=== PATIENT | male | born 1930 | race Caucasian/White ===

== ENCOUNTER 2016-12-05 13:08 | Outpatient (CLI) | payer MEDICARE, OTHER | END 2016-12-05 13:09 | disposition home or self-care (01) | LOC: SC 13:08 | PROVIDERS: ATTEND Internal Medicine Pulmonary Disease | DX: G47.33 Obstructive sleep apnea (adult) (pediatric) (principal) | CPT/HCPCS: 99203; G0463; 99212 ==

== ENCOUNTER 2017-01-12 22:00 | Outpatient (CLI) | payer MEDICARE, OTHER | END 2017-01-12 22:01 | disposition home or self-care (01) | LOC: SC 22:00 | PROVIDERS: ATTEND Internal Medicine Pulmonary Disease | DX: G47.61 Periodic limb movement disorder (principal) | CPT/HCPCS: 95810 ==

== ENCOUNTER 2017-02-07 09:29 | Outpatient (CLI) | payer MEDICARE, OTHER | END 2017-02-07 09:30 | disposition home or self-care (01) | LOC: SC 09:29 | PROVIDERS: ATTEND Nurse Practitioner Family | DX: G47.61 Periodic limb movement disorder (principal); G47.10 Hypersomnia, unspecified; I49.9 Cardiac arrhythmia, unspecified; R06.83 Snoring | CPT/HCPCS: 99214; G0463; 99212 ==

== ENCOUNTER 2017-04-12 13:38 | Outpatient (CLI) | payer MEDICARE, OTHER ==
[2017-04-12 14:07] LABS: BILIRUBIN,DIRECT 0.1 mg/dL (0.1-0.5); BILIRUBIN,TOTAL 0.4 mg/dL (0.2-1.0); TOTAL PROTEIN 7.1 g/dL (6.7-8.2)
== END 2017-04-12 13:39 | disposition home or self-care (01) ==
LOC: LAB 13:38
PROVIDERS: ATTEND Orthopaedic Surgery
DX: M17.11 Unilateral primary osteoarthritis, right knee (principal); M17.12 Unilateral primary osteoarthritis, left knee; Z96.651 Presence of right artificial knee joint
CPT/HCPCS: 36415; 80076

== ENCOUNTER 2017-10-18 09:03 | Outpatient (CLI) | payer MEDICARE, OTHER ==
[2017-10-18 12:00] LABS: CHOL/HDL RATIO 3.1 (<5.0); CHOLESTEROL 203 mg/dL; HDL CHOLESTEROL 66 mg/dL; LDL CHOLESTEROL,CALCULATED 124 mg/dL; LDL/HDL RATIO 1.9 (<3.6); VLDL CHOLESTEROL 13 mg/dL
== END 2017-10-18 09:04 | disposition home or self-care (01) ==
LOC: LAB.F 09:03
PROVIDERS: ATTEND Internal Medicine
DX: E78.5 Hyperlipidemia, unspecified (principal)
CPT/HCPCS: 36415; 80061; 83721

== ENCOUNTER 2018-04-04 08:19 | Emergency (ER) | payer MEDICARE, OTHER ==
--- NOTE | 2018-04-04 08:47 | ED Physician Documentation ---
PD HPI FOCAL NEURO - Stated complaint Stated Complaint: R ARM NUMBNESS/DIZZINESS - Chief complaint Chief Complaint: Neuro - History obtained from History obtained from: Patient, Family - History of Present Illness Timing - onset: Enter time (0800), Today Timing - duration: Minutes Timing - details: Abrupt onset, Now resolved Severity of deficit: Mild Weakness: Hand, Right Numbness: Hand, Right Associated symptoms: No: Headache, Nausea / vomiting, Seizure, Syncope, Fall, Head injury, Chest pain, Neck pain, Back pain, Fever Contributing factors: positive: Other (has and is dehydrated.) Baseline status: positive: A&OX3, ambulatory, indep Similar symptoms before: No diagnosis Recently seen: Not recently seen - Additional information Additional information: Previously well 88-year-old male with a history of coronary artery disease status post stent placement 15 years ago was doing his usual morning routine this morning when he noted some numbness to his right hand and some clumsiness as well as some slurring of his speech. He felt a bit lightheaded dizzy and his noted him to be a bit pale. His symptoms resolved when he sat down and he recalls that he has had similar symptoms about 1 week ago that were brief and associated only with some slurring of his speech which he felt like he had a thick tongue. He does have a murmur that he has known about all of his life he has had an echocardiogram done at the time he had the stents placed but he does not believe he has had an echo or a follow-up with a health safety and environment manager for the past 10-years. He is currently symptom-free and he denies any other current illness. He does state that he had a URI about 1 month ago symptoms of that resolved completely. Review of Systems Constitutional: denies: Fever, Chills Eyes: denies: Decreased vision Ears: denies: Ear pain Nose: denies: Rhinorrhea / runny nose, Congestion Throat: denies: Sore throat Cardiac: denies: Chest pain / pressure, Palpitations Respiratory: denies: Dyspnea, Cough GI: denies: Abdominal Pain, Nausea, Vomiting : denies: Dysuria, Frequency Skin: denies: Rash, Lesions Musculoskeletal: denies: Neck pain, Back pain, Extremity pain Neurologic: reports: Focal weakness, Numbness, Difficulty speaking. denies: Generalized weakness, Seizure, Confused, Altered mental status, Headache, Head injury, LOC PD PAST MEDICAL HISTORY - Present Medications Home Medications: Ambulatory Orders Medication Instructions Recorded Confirmed Aspirin 81 mg PO DAILY 04/04/18 04/04/18 Docusate Sodium 100 mg PO DAILY 04/04/18 04/04/18 Glucosamine Sulfate Dipot Chlr 2,000 mg ORAL DAILY 04/04/18 04/04/18 [Glucosamine Sulfate] B[place]-3S/Dha/Epa/Fish Oil/D3 2 each PO DAILY 04/04/18 04/04/18 [Bells-3 + D Softgel] Tamsulosin [Flomax] 0.4 mg ORAL DAILY 04/04/18 04/04/18 - Allergies Allergies/Adverse Reactions: Allergies Allergy/AdvReac Type Severity Reaction Status Date / Time No Known Drug Allergies Allergy Verified 04/04/18 08:38 PD ED PE NORMAL - Vitals Vital signs reviewed: Yes (hypertensive marked systolic) - General General: Alert and oriented X 3, No acute distress, Well developed/nourished - HEENT HEENT: Atraumatic, PERRL, EOMI - Neck Neck: Supple, no meningeal sign, No bony TTP - Cardiac Cardiac: RRR, Other (2/6 holosystolic murmer at LSB is high pitched consistent with aortic stenosis) - Respiratory Respiratory: No respiratory distress, Clear bilaterally - Abdomen Abdomen: Soft, Non tender - Back Back: No CVA TTP, No spinal TTP - Derm Derm: Normal color, Warm and dry, No rash - Extremities Extremities: No deformity, No edema - Neuro Neuro: Alert and oriented X 3, yard crane operator 2-12 intact, No motor deficit, No sensory deficit, Normal speech Eye Opening: Spontaneous Motor: Obeys Commands Verbal: Oriented GCS Score: 15 - Psych Psych: Normal mood, Normal affect NIHSS - Level of Consciousness Level of consciousness: (0) Alert, Keenly responsive LOC Questions: (0) Answers both Q's correct LOC Commands: (0) Performs both correctly - Gaze Best Gaze: (0) Normal - Visual Visual: (0) No loss - Facial Palsy Facial Palsy: (0) Normal, symmetrical movement - Motor Arms (both separate) Motor Arm (right): (0) No drift Motor Arm (left): (0) No drift - Motor Legs (both separate) Motor Leg (right): (0) No drift Motor Leg (left): (0) No drift - Limb Ataxia Limb Ataxia: (0) Absent - Sensory Sensory: (0) Normal - Best Language Best Language: (0) No aphasia - Dysarthria Dysarthria: (0) Normal - Extinction and Inattention (formally neg Extinction and inattention: (0) No abnormality - Total Score/Results Total Score/Result: 0 Results - Vitals Vitals: Vital Signs - 24 hr 04/04/18 04/04/18 04/04/18 08:24 08:30 09:30 Temperature 36.2 C L Heart Rate 62 56 L 54 L Respiratory 19 17 16 Rate Blood Pressure 198/81 H 198/81 H 158/67 H O2 Saturation 100 96 100 04/04/18 04/04/18 10:00 10:33 Temperature Heart Rate 58 L 63 Respiratory 20 16 Rate Blood Pressure 152/76 H 173/83 H O2 Saturation 98 95 Oxygen O2 Source Room air - EKG (time done) 0823 Rate: Rate (enter#) (57) Rhythm: NSR, LAE Ischemia: Normal ST segments Compare to prior EKG: Old EKG unavailable Computer interpretation: Agree with computer - Labs Labs: Laboratory Tests 04/04/18 04/04/18 04/04/18 08:42 08:42 08:42 WBC 3.9 L RBC 4.10 L Hgb 12.4 L Hct 36.4 L MCV 88.8 MCH 30.1 MCHC 34.0 RDW 13.9 Plt Count 183 MPV 8.3 Neut # (Auto) 2.3 Lymph # (Auto) 1.0 L Mckenzie # (Auto) 0.3 Eos # (Auto) 0.2 Baso # (Auto) 0.0 Absolute Nucleated RBC 0.00 Nucleated RBC % 0.0 Sodium 137 Potassium 3.7 Chloride 102 Carbon Dioxide 26 Anion Gap 9.0 BUN 18 Creatinine 0.7 Estimated GFR (MDRD) 107 Glucose 100 Calcium 9.1 Total Bilirubin 0.7 AST 19 ALT 16 Alkaline Phosphatase 70 Troponin I < 0.04 Total Protein 6.8 Albumin 4.0 Globulin 2.8 Albumin/Globulin Ratio 1.4 Lipase 39 Urine Color Urine Clarity Urine pH Ur Specific [place] Urine Protein Urine Glucose (UA) Urine Ketones Urine Occult Blood Urine Nitrite Urine Bilirubin Urine Urobilinogen Ur Leukocyte Esterase Ur Microscopic Review Urine Culture Comments 04/04/18 10:26 WBC RBC Hgb Hct MCV MCH MCHC RDW Plt Count MPV Neut # (Auto) Lymph # (Auto) Mckenzie # (Auto) Eos # (Auto) Baso # (Auto) Absolute Nucleated RBC Nucleated RBC % Sodium Potassium Chloride Carbon Dioxide Anion Gap BUN Creatinine Estimated GFR (MDRD) Glucose Calcium Total Bilirubin AST ALT Alkaline Phosphatase Troponin I Total Protein Albumin Globulin Albumin/Globulin Ratio Lipase Urine Color YELLOW Urine Clarity CLEAR Urine pH 6.0 Ur Specific [place] 1.020 Urine Protein NEGATIVE Urine Glucose (UA) NEGATIVE Urine Ketones NEGATIVE Urine Occult Blood NEGATIVE Urine Nitrite NEGATIVE Urine Bilirubin NEGATIVE Urine Urobilinogen 0.2 (NORMAL) Ur Leukocyte Esterase NEGATIVE Ur Microscopic Review NOT INDICATED Urine Culture Comments NOT INDICATED - Rads (name of study) CT head without Radiology: Prelim report reviewed (Impression: 1. No acute intracranial abnormality. 2. There is low density intra-axial structure in the right anterior temporal lobe, incompletely characterized on this exam. A follow-up brain MRI on a nonemergent basis with and without IV contrast would be useful for further characterization.), EMP read indepedently, See rad report Procedures - IVC sono (time) 0840 Bedside IVC sono: IVC measures (cm) (0.82), IVC collapsed c insp (cm) (complete), Dehydration (est 2 liter deficit) PD MEDICAL DECISION MAKING - ED course Complexity details: reviewed old records, reviewed results, re-evaluated patient, considered differential, d/w patient, d/w family ED course: 88-year-old male with a history of coronary artery disease who is status post stent placement a number of years ago has not had follow-up with cardiology and has a murmur consistent with aortic stenosis. Today he is found to be dehydrated and developed symptoms of a TIA. He has had similar symptoms 1 week ago which resolved as well. I suspect he is been dehydrated chronically and today we have provided IV hydration he feels some improvement and his symptoms of TIA resolved prior to coming to the emergency department. I did discuss admission to the hospital with the patient and he would prefer to go home. Today the engineering lab technician is not available in the hospital as they are out on sick call. I have asked the patient to follow-up with his primary this week regarding scheduling of the remainder of test required for evaluation of TIA. Departure - Departure Disposition: 01 Home, Self Care Clinical Impression: TIA (transient ischemic attack), Dehydration Aortic stenosis Qualifiers: Cardiac valve disease etiology: etiology unspecified Qualified Code(s): I35.0 - Nonrheumatic aortic (valve) stenosis Condition: Stable Instructions: ED Dehydration, ED Transient Ischemic Attack Follow-Up: Jamison Hernandez MD [Primary Care Provider] - Comments: Today it appears you had a TIA and this is likely related to the combination of dehydration and aortic stenosis. We have hydrated with intravenous fluids and a workup will need to be completed expeditiously. Contact your primary care doctor about scheduling the required tests. This should include an echocardiogram of your heart. In the meantime stay hydrated
[2018-04-04] MEDS ORDERED: SODIUM CHLORIDE 0.9% 1,000 ML IV ONE (08:53)
[2018-04-04 09:00] LABS: BASOPHILS % (AUTO) 0.6 %; EOSINOPHILS # (AUTO) 0.2 10^3/uL (0.0-0.7); EOSINOPHILS % (AUTO) 4.9 %; HGB - HEMOGLOBIN 12.4 g/dL (14.0-18.0); LYMPHOCYTES % (AUTO) 26.1 %; MEAN CORPUSCULAR HEMOGLOBIN 30.1 pg (27.0-31.0); MEAN CORPUSCULAR VOLUME 88.8 fL (80.0-94.0); MEAN PLATELET VOLUME 8.3 fL (7.4-11.4); MONOCYTES # (AUTO) 0.3 10^3/uL (0.0-1.0); MONOCYTES % (AUTO) 8.7 %; NEUTROPHILS # (AUTO) 2.3 10^3/uL (1.5-6.6); NEUTROPHILS % (AUTO) 59.7 %; PLT - PLATELET COUNT 183 10^3/uL (130-450); RED CELL DISTRIBUTION WIDTH 13.9 % (12.0-15.0); WHITE BLOOD COUNT 3.9 x10^3/uL (4.8-10.8)
[2018-04-04 09:15] LABS: ALBUMIN/GLOBULIN RATIO 1.4 (1.0-2.2); BILIRUBIN,TOTAL 0.7 mg/dL (0.2-1.0); CALCIUM 9.1 mg/dL (8.5-10.3); CREATININE 0.7 mg/dL (0.6-1.2); TOTAL PROTEIN 6.8 g/dL (6.7-8.2)
--- NOTE | 2018-04-04 09:25 | CT Report ---
Reason: right sided weakness transient Procedure Date: 04/04/2018 Accession Number: [id number] / [id number] Procedure: CT - Head W/O CPT Code: FULL RESULT: EXAM: CT HEAD EXAM DATE: 04/04/2018 09:11 AM. CLINICAL HISTORY: Right sided weakness transient. COMPARISON: None available. TECHNIQUE: Multiaxial CT images were obtained from the foramen magnum to the vertex. Reformats: Sagittal and coronal. IV contrast: None. In accordance with CT protocol optimization, one or more of the following dose reduction techniques were utilized for this exam: automated exposure control, adjustment of mA and/or KV based on patient size, or use of iterative reconstructive technique. FINDINGS: Parenchyma: No mass-effect or midline shift. No intracranial hemorrhage. There is a CSF density intra-axial lesion in the anterior right temporal lobe on series 3 image 7 measuring 1.5 x 1.3 cm. There is a 0.4 x 0.8 cm low-density lesion in the right occipital lobe on series 3 image 12, probably a focally dilated sulcus. The waldron-white differentiation appears preserved. Extraaxial Spaces: Normal for age. No subdural or epidural collections identified. Ventricles: Normal in size and position. Sinuses and Orbits: Imaged paranasal sinuses, orbits, and mastoids show no significant abnormality. Bones: No evidence of fracture or calvarial defect. Other: None. IMPRESSION: 1. No acute intracranial abnormality. 2. There is a low-density intra-axial structure in the anterior right temporal lobe, incompletely characterized on this exam. A follow-up brain MRI on a nonemergent basis with and without IV contrast would be useful for further characterization. [facility]
[2018-04-04 10:45] LABS: BILIRUBIN,URINE NEGATIVE (NEGATIVE); GLUCOSE, URINE (UA) NEGATIVE (NEGATIVE); KETONES,URINE (UA) NEGATIVE (NEGATIVE); LEUKOCYTE ESTERASE, URINE NEGATIVE (NEGATIVE); NITRITE,URINE NEGATIVE (NEGATIVE); OCCULT BLOOD,URINE NEGATIVE (NEGATIVE); PROTEIN,URINE NEGATIVE (NEGATIVE); UROBILINOGEN,URINE 0.2 (NORMAL) E.U./dL (NORMAL)
[2018-04-04 10:48] LABS: CLARITY,URINE CLEAR (CLEAR)
[2018-04-04 12:30] VITALS: BP 131/67
== END 2018-04-04 12:30 | disposition home or self-care (01) ==
LOC: ED 08:19
DX: G45.9 Transient cerebral ischemic attack, unspecified (principal); E86.0 Dehydration; I35.0 Nonrheumatic aortic (valve) stenosis; I25.10 Atherosclerotic heart disease of native coronary artery without angina pectoris; Z95.5 Presence of coronary angioplasty implant and graft
CPT/HCPCS: 36415; 70450; 80053; 81001; 81003; 83690; 84484; 85025; 87086; 93005; 96360; 99284

== ENCOUNTER 2018-04-07 08:15 | Emergency (ER) | payer MEDICARE, OTHER ==
--- NOTE | 2018-04-07 08:20 | ED Physician Documentation ---
PD HPI FOCAL NEURO - Stated complaint Stated Complaint: DIZZY/R SIDE NUMBNESS/SLURRED SPEECH - History obtained from History obtained from: Patient - History of Present Illness Timing - onset: How many hours ago (1), Today Timing - duration: Minutes (it is improving enroute and is mostly gone here in ER.) Timing - details: Abrupt onset, Now resolved Severity of deficit: Moderate Weakness: Hand, Right (mild). No: Face Numbness: Arm, Hand, Right. No: Face, Leg Associated symptoms: No: Headache, Nausea / vomiting, Chest pain Contributing factors: negative: Anticoagulated Baseline status: positive: A&OX3, ambulatory, indep Similar symptoms before: Diagnosis (presume TIA, 3 days ago and a week ago, both similar symptoms and lasted about 5-10 minutes.) Recently seen: Emergency Dept (3 days ago for same symptoms, with CT head and some blood tests. Given IV fluids. Was continued on ASA daily.) Review of Systems Constitutional: denies: Fever, Chills Nose: denies: Rhinorrhea / runny nose, Congestion Throat: denies: Sore throat Cardiac: denies: Chest pain / pressure, Palpitations Respiratory: denies: Dyspnea, Cough GI: denies: Abdominal Pain, Nausea, Vomiting Skin: denies: Rash, Lesions Neurologic: reports: Focal weakness, Numbness. denies: Generalized weakness, Near syncope, Confused, Altered mental status, Headache Immunocompromised: denies: Immunocompromised PD PAST MEDICAL HISTORY - Past Medical History Cardiovascular: Coronary artery disease, Murmur Neuro: TIA : Retention, Frequency - Past Surgical History Past Surgical History: Yes Ortho: Knee replacement Cardiovascular: Coronary stent - Present Medications Home Medications: Ambulatory Orders Medication Instructions Recorded Confirmed Aspirin 81 mg PO DAILY 04/04/18 04/04/18 Docusate Sodium 100 mg PO DAILY 04/04/18 04/04/18 Glucosamine Sulfate Dipot Chlr 2,000 mg ORAL DAILY 04/04/18 04/04/18 [Glucosamine Sulfate] [place]-3S/Dha/Epa/Fish Oil/D3 2 each PO DAILY 04/04/18 04/04/18 [[place]-3 + D Softgel] Tamsulosin [Flomax] 0.4 mg ORAL DAILY 04/04/18 04/04/18 - Allergies Allergies/Adverse Reactions: Allergies Allergy/AdvReac Type Severity Reaction Status Date / Time No Known Drug Allergies Allergy Verified 04/07/18 08:22 - Social History Does the pt smoke?: No Smoking Status: Never smoker Does the pt drink ETOH?: No Does the pt have substance abuse?: No - Immunizations Immunizations are current?: Yes PD ED PE NORMAL - Vitals Vital signs reviewed: Yes - General General: Alert and oriented X 3, No acute distress, Well developed/nourished - HEENT HEENT: Atraumatic, Pharynx benign - Neck Neck: Supple, no meningeal sign, No adenopathy, No bruit - Cardiac Cardiac: RRR, Other (2/6 murmur left chest radiates to back) - Respiratory Respiratory: Clear bilaterally - Abdomen Abdomen: Soft, Non tender - Back Back: No CVA TTP - Derm Derm: Normal color, Warm and dry - Extremities Extremities: No deformity, No tenderness to palpate - Neuro Neuro: Alert and oriented X 3, enterprise account executive 2-12 intact, No motor deficit, No sensory deficit, Normal speech Eye Opening: Spontaneous Motor: Obeys Commands Verbal: Oriented GCS Score: 15 - Psych Psych: Normal mood, Normal affect NIHSS - Level of Consciousness Level of consciousness: (0) Alert, Keenly responsive LOC Questions: (0) Answers both Q's correct LOC Commands: (0) Performs both correctly - Gaze Best Gaze: (0) Normal - Visual Visual: (0) No loss - Facial Palsy Facial Palsy: (0) Normal, symmetrical movement - Motor Arms (both separate) Motor Arm (right): (0) No drift Motor Arm (left): (0) No drift - Motor Legs (both separate) Motor Leg (right): (0) No drift Motor Leg (left): (0) No drift - Limb Ataxia Limb Ataxia: (0) Absent - Sensory Sensory: (0) Normal - Best Language Best Language: (0) No aphasia - Dysarthria Dysarthria: (0) Normal - Extinction and Inattention (formally neg Extinction and inattention: (0) No abnormality - Total Score/Results Total Score/Result: 0 Results - Vitals Vitals: Vital Signs - 24 hr 04/07/18 04/07/18 04/07/18 08:19 08:33 09:54 Temperature 36.1 C L Heart Rate 60 61 59 L Respiratory 18 16 17 Rate Blood Pressure 204/64 H 193/85 H 182/87 H O2 Saturation 97 97 97 04/07/18 11:22 Temperature Heart Rate 59 L Respiratory 18 Rate Blood Pressure 172/87 H O2 Saturation 99 Oxygen O2 Source Room air - Labs Labs: Laboratory Tests 04/07/18 04/07/18 04/07/18 08:46 08:46 08:46 WBC 3.7 L RBC 3.97 L Hgb 12.0 L Hct 35.3 L MCV 88.9 MCH 30.3 MCHC 34.1 RDW 14.1 Plt Count 176 MPV 7.9 Neut # (Auto) 2.2 Lymph # (Auto) 0.9 L [place] # (Auto) 0.3 Eos # (Auto) 0.2 Baso # (Auto) 0.0 Absolute Nucleated RBC 0.00 Nucleated RBC % 0.0 ESR 14 Sodium 138 Potassium 3.8 Chloride 105 Carbon Dioxide 27 Anion Gap 6.0 BUN 16 Creatinine 0.7 Estimated GFR (MDRD) 107 Glucose 109 H Calcium 8.9 Magnesium 2.1 Total Bilirubin 0.5 AST 17 ALT 15 Alkaline Phosphatase 71 Total Protein 6.7 Albumin 3.8 Globulin 2.9 Albumin/Globulin Ratio 1.3 Lipase 31 - Rads (name of study) head/neck CT-A Radiology: Prelim report reviewed, Discussed with rads (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 Of more clinical importance is a left M1 stenosis.) PD MEDICAL DECISION MAKING - ED course Complexity details: considered differential, d/w patient, d/w economics consultant (I talked with [place] neurology who said the M1 stenosis was too distal to be approachable by endovascular stents or such. His recommendation was to add a statin and also add Plavix to his daily aspirin. This should have a 3-4-week duration and then possibly longer after that. Otherwise observation and regular TIA evaluation.), other (We were to place the patient observation here at our facility because of his moderate risk on the ABCD score of 4 and also for furthe r evaluation with echo and MRI. However the hospitalist service was informed subsequently that our data collection technician was unavailable for a few days and there is a question of MRI availability and so we would not be able to undergo the appropriate workup. The patient asked about [facility] alternatively. I talked with the hospitalist there who was willing to accept the patient in transfer for the appropriate TIA evaluation. He remained stable without any symptoms here in the department. He was given the clopidogrel and initial dose of statin.) Departure - Departure Disposition: 02 Transfer Acute Care Hosp Clinical Impression: TIA (transient ischemic attack) Condition: Stable Record reviewed to determine appropriate education?: Yes
[2018-04-07] MEDS ORDERED: SODIUM CHLORIDE 0.9% 1,000 ML IV ONE (08:34)
[2018-04-07 08:54] LABS: BASOPHILS % (AUTO) 0.8 %; EOSINOPHILS # (AUTO) 0.2 10^3/uL (0.0-0.7); LYMPHOCYTES # (AUTO) 0.9 10^3/uL (1.5-3.5); LYMPHOCYTES % (AUTO) 24.9 %; MEAN CORPUSCULAR HEMOGLOBIN 30.3 pg (27.0-31.0); MEAN CORPUSCULAR HGB CONC 34.1 g/dL (32.0-36.0); MEAN CORPUSCULAR VOLUME 88.9 fL (80.0-94.0); MEAN PLATELET VOLUME 7.9 fL (7.4-11.4); MONOCYTES # (AUTO) 0.3 10^3/uL (0.0-1.0); MONOCYTES % (AUTO) 8.6 %; NEUTROPHILS # (AUTO) 2.2 10^3/uL (1.5-6.6); NEUTROPHILS % (AUTO) 59.7 %; PLT - PLATELET COUNT 176 10^3/uL (130-450); RED BLOOD COUNT 3.97 10^6/uL (4.70-6.10); RED CELL DISTRIBUTION WIDTH 14.1 % (12.0-15.0); WHITE BLOOD COUNT 3.7 x10^3/uL (4.8-10.8)
[2018-04-07] MEDS ORDERED: IOVERSOL 320 100 ML VIAL IVP ONE ×2 (08:59→09:58)
[2018-04-07 09:04] LABS: ALBUMIN 3.8 g/dL (3.2-5.5); ALBUMIN/GLOBULIN RATIO 1.3 (1.0-2.2); BILIRUBIN,TOTAL 0.5 mg/dL (0.2-1.0); CALCIUM 8.9 mg/dL (8.5-10.3); CREATININE 0.7 mg/dL (0.6-1.2); MAGNESIUM 2.1 mg/dL (1.7-2.8); TOTAL PROTEIN 6.7 g/dL (6.7-8.2)
--- NOTE | 2018-04-07 10:13 | CT Report ---
Reason: aphasia and right arm numb Procedure Date: 04/07/2018 Accession Number: [id number] / [id number] Procedure: CT - Head Angio CPT Code: FULL RESULT: The CT angiogram head is dictated in conjunction with the CT angiogram of the neck and the reader is referred to that dictation
--- NOTE | 2018-04-07 10:13 | CT Report ---
Reason: right arm numb and aphasia this morning Procedure Date: 04/07/2018 Accession Number: [id number] / [id number] Procedure: CT - Head W/O Stroke Protocol CPT Code: FULL RESULT: The CT head without contrast is dictated in conjunction with the patient's CT angiogram of the neck and the reader is referred to that dictation
--- NOTE | 2018-04-07 10:43 | CT Report ---
Reason: aphasia and right arm numb this morning Procedure Date: 04/07/2018 Accession Number: [id number] / [id number] Procedure: CT - Neck Angio CPT Code: FULL RESULT: EXAM: CT ANGIOGRAM HEAD AND NECK. CT SCAN HEAD WITHOUT AND WITH CONTRAST. EXAM DATE:04/07/2018 09:11 AM. CLINICAL HISTORY:Aphasia and right arm numbness this morning. COMPARISON:CT head 04/04/2018. TECHNIQUE: Routine axial helical CTA imaging was performed from the aortic arch through the [place] [employer] [place]. Routine axial CT imaging of the head was performed prior to and following contrast administration. Reconstructions: Routine multiplanar 3D MIP reconstructions. IV contrast: Optiray 320: 80 mL. NASCET Criteria are used for stenosis measurements. In accordance with CT protocol optimization, one or more of the following dose reduction techniques were utilized for this exam: automated exposure control, adjustment of mA and/or KV based on patient size, or use of iterative reconstructive technique. FINDINGS: CT SCAN HEAD: No territorial loss of biggs-white matter differentiation is present. Age-appropriate prominence of the ventricles and sulci is noted. There is no extra-axial fluid collection present. No intracranial hemorrhage is identified. In the right temporal lobe there is a 13 mm hypoattenuating well-circumscribed focus which does not enhance and has attenuation very similar to CSF. No enhancing mass is identified in the brain parenchyma. No suspicious lytic or blastic region is seen in the calvarium. Gas is seen in the cavernous sinus bilaterally and in the infratemporal fossa bilaterally. This might well be due to recent IV therapy. CT ANGIOGRAM EXTRACRANIAL CIRCULATION: Atherosclerotic calcification is seen involving the transverse thoracic aorta. No significant stenosis is present at the great vessel origins. Right Carotid: Atherosclerotic plaque is seen in the distal CCA and proximal cervical ICA. 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 There is no reconstitution of the cervical ICA distal to this point. Atherosclerotic plaque is seen in the region of the ECA origin without a significant stenosis present. Left Carotid: Mild atherosclerotic plaque is seen involving the distal CCA with extension into the proximal cervical ICA. This does not result in significant narrowing of the cervical ICA. Vertebrals: Artifact limits assessment of each proximal vertebral artery. No hemodynamically significant stenosis is identified in either cervical vertebral artery. CT ANGIOGRAM INTRACRANIAL CIRCULATION: There is reconstitution of the supraclinoid ICA on the right. There is an anterior communicating artery. The A1 segment of the right DENISE is slightly hypoplastic. A moderate stenosis is seen in the distal M1 segment of the left MCA. No narrowing is seen in the M1 segment of the right MCA. No significant narrowing or filling defect is seen in the basilar trunk. Mild narrowing is seen in the V4 segment of each vertebral artery. The anterior cerebral arteries are patent. A posterior communicating artery is seen on the right. Mild to moderate stenosis is seen involving the proximal P2 segment of the left CARD TAPE CONVERTER OPERATOR. The posterior cerebral arteries are patent. The anterior cerebral arteries are patent. 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 Expected enhancement is identified in the major intracranial vessels. The right transverse sinus is dominant. Other: The thyroid gland is not enlarged. No bulky lymphadenopathy is seen in the neck or in the visualized upper mediastinum. No mass is present in either submandibular gland or in either parotid gland. No mass is present in either orbit. Degenerative changes are seen in the visualized spine. This is greatest in the cervical spine at C6-C7 and C7-T1, where there is degenerative disk disease and osteophyte formation present. There is bilateral foraminal stenosis at C6-C7. IMPRESSION: CT SCAN HEAD: 1. No intracranial hemorrhage. 2. No enhancing mass. 3. Biggs-white matter differentiation is preserved. 4. 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 Imaging surveillance demonstrating stability over time would be of value. CT ANGIOGRAM NECK: 1. 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 No significant stenosis is seen involving the origin of the ECA on the right. 2. No significant narrowing is seen in the cervical ICA on the left or in either cervical vertebral artery. CT ANGIOGRAM HEAD: 1. There is a moderate stenosis in the distal M1 segment of the left MCA. 2. Mild to moderate stenosis is seen involving the left CARD TAPE CONVERTER OPERATOR. 3. Mild narrowing is seen in the V4 segment of each vertebral artery. 4. There is reconstitution of the distal ICA on the right at its supraclinoid segment. Other: 1. Degenerative changes are seen in the spine, greatest in the cervical spine at C6-C7 and C7-T1. Report phoned to the ordering physician at 10:15 AM. RADIA
[2018-04-07] MEDS ORDERED: CLOPIDOGREL 75 MG TABLET PO STA (10:48)
[2018-04-07] MEDS ORDERED: ATORVASTATIN 10 MG TABLET PO STA (11:11)
--- NOTE | 2018-04-07 11:54 | CONSULTATION NOTE ---
Referring Provider Name of Referring Provider:: Dr. Ramachandran Consult Date: 04/07/18 Chief Complaint - Chief Complaint Chief Complaint: sluggish speech, RUE numbness, ataxia. History of Present Illness - Admitted From Admitted From:: ED - History Obtained From Records Reviewed: yes History obtained from: chart review, patient, family Exam Limitations: none - History of Present Illness HPI Comment/Other: Roney Avalos is an 88-year old male with a past medical history of hypertension, hyperlipidemia, diabetes, BPH, olecranon bursitits, hemangioma of the skin, seborrheic keratosis, PTCA stent, nocturia, obesity, DILCIA-noncompliance to CPAP, osteoarthritis, herpetic neuropathy, hearing loss, GERD, upper GI bleed in 2009, and heart murmur. The patient was seen in our ED for nearly the exact same symptoms on 04/04/18 and sent home with recommendations to continue work up outpatient including obtaining an echocardiogram. This episode began about 0800 this morning in which his speech became sluggish, with RUE numbness and tingling, slight ataxia, and slight dizziness. There was no time wasted, and his brought him back to the ED as instructed. Upon arrival to the ED triage notes explain the exact same symptoms. 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 The ED physician reached out to [facility] who suggested observation and treatment with statin/Plavix and ASA. Upon my exam, his symptoms had subsided and he was grossly neuro intact. A systolic murmur was appreciated, and the patient admitted to having this for most of his life. The work up was explained with the exclusion of us not being able to offer echocardiogram due to staffing of which he disagreed with staying. The echocardiogram was the component that would guide our recommendations, which may explain the etiology of his TIA symptoms or rule out his aortic stenosis as the cause. Thank you for this consult, the patient wishes to transfer to [place] or a similar facility that can do a proper work up. 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 : reports: Benign prostate hypertrophy, Retention, Nocturia, Frequency HEENT: reports: Chronic vision loss, Chronic sinusitis, Chronic hearing loss Psych: reports: None Musculoskeletal: reports: Osteoarthritis, Chronic back pain - Past Surgical History Ortho: reports: Knee replacement Cardiovascular: reports: Coronary stent, Cardiac catheterization, Angioplasty HEENT: reports: Cataracts Derm: reports: Skin cancer surgery - Family & Social History Family History: Mother: , Father: , Cancer, Sister: Alive and Well, , Alcoholism, Brother: Alive and Well Family History Comment/Other: The patient's father of bladder cancer, his mother of CHF. He has 3 sisters, one who of ETOH, another with insomnia, and a brother who is alive and well without a known medical history. Living arrangement: At home Living Situation: With spouse/s.o. Social History Notes: The patient was in 2010 after 57 years of marriage. 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 They live independently in [place], [place]. He has 7 children who are alive and well. He denies a history of alcohol, tobacco or illicit drug use. He enjoys traveling, tennis, [employer], and spiritism activities. He wishes to be a F[employer] code. - Substance History Use: Uses substance without health or social issues: NONE Abuse: Recurrent use of substance despite neg consequences: NONE Dependence: Experiences withdrawal or developed tolerances: NONE - POLST Patient has POLST: No POLST Status: Full Code Meds/Allgy - Home Medications Home Medications: Ambulatory Orders Medication Instructions Recorded Confirmed Aspirin 81 mg PO DAILY 04/04/18 04/04/18 Docusate Sodium 100 mg PO DAILY 04/04/18 04/04/18 Glucosamine Sulfate Dipot Chlr 2,000 mg ORAL DAILY 04/04/18 04/04/18 [Glucosamine Sulfate] [place]-3S/Dha/Epa/Fish Oil/D3 2 each PO DAILY 04/04/18 04/04/18 [[place]-3 + D Softgel] Tamsulosin [Flomax] 0.4 mg ORAL DAILY 04/04/18 04/04/18 - Allergies Allergies/Adverse Reactions: Allergies Allergy/AdvReac Type Severity Reaction Status Date / Time No Known Drug Allergies Allergy Verified 04/07/18 08:22 Review of Systems - Constitutional Constitutional: reports: Fatigue, Weakness - Eyes Eyes: reports: Corrective lenses - Ears, Nose & Throat Ears, Nose & Throat: reports: Hearing loss, Hearing aids, Postnasal drainage - Cardiovascular Cariovascular: reports: Lightheadedness, Orthopnea - Gastrointestinal Gastrointestinal: reports: Abdominal distention, Reflux/heartburn - Genitourinary Genitourinary: reports: Urgency, Nocturia - Musculoskeletal Musculoskeletal: reports: Muscle weakness - Integumentary Integumentary: reports: Dryness - Neurological Neurological: reports: Focal weakness (RUE), Dizziness, Numbness, Pre-existing deficit, Slurred speech (sluggish speech, now resolved.) - All Other Systems All Other Systems: reports: Reviewed and negative Exam - Vital Signs Reviewed Vital Signs: Yes Vital Signs: Vital Signs x48h Temp Pulse Resp BP Pulse Ox 04/07/18 11:22 59 L 18 172/87 H 99 04/07/18 09:54 59 L 17 182/87 H 97 04/07/18 08:33 61 16 193/85 H 97 04/07/18 08:19 36.1 C L 60 18 204/64 H 97 - Physical Exam General Appearance: positive: No acute distress, Alert Eyes Bilateral: positive: PERRL ENT: positive: Pharynx nml, Dry mucous membranes Neck: positive: No JVD, Trachea midline Respiratory: positive: Chest non-tender, No respiratory distress Cardiovascular: positive: No gallop, Irregularly irregular, Systolic murmur, Decreased pulse(s) Peripheral Pulses: positive: 1+ Abdomen: positive: Non-tender, Nml bowel sounds, Hepatomegaly, Other (obese, soft) Back: positive: Nml inspection Skin: positive: Color nml, No rash, Warm, Dry Extremities: positive: Non-tender, Joint swelling Neurologic/Psychiatric: positive: Oriented x3, CN's nml (2-12), Motor nml, Sensation nml, Mood/affect nml Reflexes: Bicep (R): 3+, Bicep (L): 3+ Conclusion/Plan - Diagnosis Diagnosis: TIA. Suspected aortic stenosis. CAD. RUE weakness, slurred speech - Plan Plan: High dose statin Plavix- if cleared by GI given his history of UGIB in 2009. ASA Complete TIA work up with echocardiogram, MRI, telemetry, orthostatic vital signs, and PT/OT/speech if needed. - Lab Results Lab results reviewed: Yes Fish Bones: 04/07/18 08:46 04/07/18 08:46
[2018-04-07 14:28] VITALS: BP 141/84
== END 2018-04-07 15:56 | disposition short-term general hospital (02) ==
LOC: ED 08:15
DX: G45.9 Transient cerebral ischemic attack, unspecified (principal); I65.8 Occlusion and stenosis of other precerebral arteries; I65.21 Occlusion and stenosis of right carotid artery; R01.1 Cardiac murmur, unspecified; I10 Essential (primary) hypertension; E78.5 Hyperlipidemia, unspecified; I25.10 Atherosclerotic heart disease of native coronary artery without angina pectoris; Z95.5 Presence of coronary angioplasty implant and graft; E11.42 Type 2 diabetes mellitus with diabetic polyneuropathy; Z79.82 Long term (current) use of aspirin
CPT/HCPCS: 36415; 70450; 70496; 70498; 80053; 83690; 83735; 85025; 85651; 93005; 96360; 99284; 99285; A9270; Q9967

== ENCOUNTER 2018-10-17 09:51 | Outpatient (CLI) | payer MEDICARE, OTHER ==
[2018-10-17 10:26] LABS: BASOPHILS % (AUTO) 0.5 %; EOSINOPHILS # (AUTO) 0.1 10^3/uL (0.0-0.7); EOSINOPHILS % (AUTO) 3.4 %; LYMPHOCYTES % (AUTO) 25.6 %; MEAN CORPUSCULAR HEMOGLOBIN 29.5 pg (27.0-31.0); MEAN CORPUSCULAR HGB CONC 32.4 g/dL (32.0-36.0); MEAN CORPUSCULAR VOLUME 90.9 fL (80.0-94.0); MEAN PLATELET VOLUME 10.6 fL (7.4-11.4); MONOCYTES # (AUTO) 0.4 10^3/uL (0.0-1.0); MONOCYTES % (AUTO) 9.1 %; NEUTROPHILS # (AUTO) 2.4 10^3/uL (1.5-6.6); NEUTROPHILS % (AUTO) 61.1 %; PLT - PLATELET COUNT 146 10^3/uL (130-450); RED BLOOD COUNT 3.73 10^6/uL (4.70-6.10); RED CELL DISTRIBUTION WIDTH 13.8 % (12.0-15.0); WHITE BLOOD COUNT 3.9 x10^3/uL (4.8-10.8)
[2018-10-17 10:29] LABS: BUN - BLOOD UREA NITROGEN 24 mg/dL (6-20); CALCIUM 9.2 mg/dL (8.5-10.3); CARBON DIOXIDE - CO2 23 mmol/L (21-32); CHLORIDE 106 mmol/L (101-111); CHOL/HDL RATIO 2.5 (<5.0); CHOLESTEROL 148 mg/dL; CREATININE 0.9 mg/dL (0.6-1.2); GFR - MDRD 80 (>89); GLUCOSE 109 mg/dL (70-100); HDL CHOLESTEROL 59 mg/dL; LDL CHOLESTEROL,CALCULATED 80 mg/dL; LDL/HDL RATIO 1.4 (<3.6); SODIUM 139 mmol/L (135-145); VLDL CHOLESTEROL 9 mg/dL
== END 2018-10-17 09:52 | disposition home or self-care (01) ==
LOC: LAB 09:51
PROVIDERS: ATTEND Internal Medicine Cardiovascular Disease
DX: E78.5 Hyperlipidemia, unspecified (principal); I10 Essential (primary) hypertension
CPT/HCPCS: 36415; 80048; 80061; 83721; 85025

== ENCOUNTER 2020-03-19 10:34 | Outpatient (CLI) | payer MEDICARE, OTHER ==
[2020-03-19 17:53] LABS: BASOPHILS % (AUTO) 0.5 %; EOSINOPHILS # (AUTO) 0.1 10^3/uL (0.0-0.7); EOSINOPHILS % (AUTO) 2.8 %; HGB - HEMOGLOBIN 11.4 g/dL (14.0-18.0); LYMPHOCYTES % (AUTO) 26.1 %; MEAN CORPUSCULAR HEMOGLOBIN 29.6 pg (27.0-31.0); MEAN CORPUSCULAR HGB CONC 31.6 g/dL (32.0-36.0); MEAN CORPUSCULAR VOLUME 93.8 fL (80.0-94.0); MEAN PLATELET VOLUME 10.6 fL (7.4-11.4); MONOCYTES # (AUTO) 0.4 10^3/uL (0.0-1.0); NEUTROPHILS # (AUTO) 2.5 10^3/uL (1.5-6.6); NEUTROPHILS % (AUTO) 61.3 %; PLT - PLATELET COUNT 177 10^3/uL (130-450); RED BLOOD COUNT 3.85 10^6/uL (4.70-6.10); RED CELL DISTRIBUTION WIDTH 13.6 % (12.0-15.0)
[2020-03-19 19:10] LABS: ALBUMIN 4.1 g/dL (3.2-5.5); ALBUMIN/GLOBULIN RATIO 1.6 (1.0-2.2); ALKALINE PHOSPHATASE 61 IU/L (42-121); ALT ALANINE AMINOTRANSFERASE 14 IU/L (10-60); AST ASPARTATE AMINOTRANSFERASE 20 IU/L (10-42); BILIRUBIN,TOTAL 0.7 mg/dL (0.2-1.0); BUN - BLOOD UREA NITROGEN 17 mg/dL (6-20); CALCIUM 9.1 mg/dL (8.5-10.3); CARBON DIOXIDE - CO2 25 mmol/L (21-32); CHLORIDE 106 mmol/L (101-111); CHOL/HDL RATIO 2.1 (<5.0); CHOLESTEROL 145 mg/dL; CREATININE 0.8 mg/dL (0.6-1.2); GLUCOSE 97 mg/dL (70-100); HDL CHOLESTEROL 68 mg/dL; LDL CHOLESTEROL,CALCULATED 64 mg/dL; LDL/HDL RATIO 0.9 (<3.6); SODIUM 139 mmol/L (135-145); TOTAL PROTEIN 6.7 g/dL (6.7-8.2); VLDL CHOLESTEROL 13 mg/dL
== END 2020-03-19 23:59 | disposition home or self-care (01) ==
LOC: LAB.WCP 10:34
PROVIDERS: ATTEND Registered Nurse
DX: G45.9 Transient cerebral ischemic attack, unspecified (principal); E78.5 Hyperlipidemia, unspecified; I35.0 Nonrheumatic aortic (valve) stenosis; N40.1 Benign prostatic hyperplasia with lower urinary tract symptoms; N13.8 Other obstructive and reflux uropathy; I25.10 Atherosclerotic heart disease of native coronary artery without angina pectoris; Z95.5 Presence of coronary angioplasty implant and graft
CPT/HCPCS: 36415; 80053; 80061; 83721; 84443; 85025

== ENCOUNTER 2021-01-07 15:57 | Outpatient (CLI) | payer MEDICARE, OTHER ==
[2021-01-07 16:51] VITALS: BP 144/74
--- NOTE | 2021-01-07 16:51 | SLEEP CARE CONSULTATION ---
Information from patient questionnaire entered by Sherie Cardenas. I have reviewed and concur with the information entered by Sherie Cardenas. This document represents the service I personally performed and the decisions made by me, Angelica Cortes ARNP. History of Present Illness Service Date and Time: 01/07/2021 1557 Reason for Visit: New patient Chief Complaint: reports: Snoring Date of Onset: 5 years Usual bedtime: 10:30 Time it takes to fall asleep: 10 minutes Snores at night: Yes Observed to quit breathing while asleep: No Sleeps alone due to snoring: Yes Number of times waking at night: 2 Reasons for waking at night: reports: Bathroom. denies: Choking, Snoring, Gasping for air Toss, Turn, or Twitch while sleeping: No Recalls having dreams: Yes (knows he dreams but doesn't remember them) Usually gets out of bed at: 7:30 Feels refreshed in the morning: Yes Morning headache: No Sleepy or fatigued during the day: No (Not usually) Ever fallen asleep while driving: No Takes day naps: Yes (Occasionally, 2 times a week at most) Dreams during day naps: No Prior sleep studies: Yes Year and Where: 2006 and 2016 [facility] Type of Sleep Study: Polysomnography Additional HPI information: I had the pleasure of seeing VIRGIE ARMSTRONG today regarding the possibility of him having a sleep disorder. His current complaint is snoring. His snoring is loud and will interrupt his 's sleep. She has never said he stopped breathing when sleeping. Patient states that his snoring seems to be getting worse. He has been previously diagnosed in 2006 with sleep apnea but never started on a CPAP because his was ill and he was taking care of her. He did repeat the sleep study many years later but at that time it came back negative (2017). 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 Patient is / and lives in [place]. Have you smoked in the past 12 months: No Alcohol use: No Caffeine use: Yes Caffeine amount and frequency: 2 coffees daily in mornings Family History Family history of sleep disordered breathing: No Allergies and Home Medications Drug allergies reviewed: Yes (NKDA) Home medication list reviewed: Yes Allergy and home medication list: Plavix 75 mg Rosuvastatin Calcium 40 mg Losartan Potassium 50 mg Amlodipine 5 mg Glucosamine 1000 mg, 2 capsules [place] 3 fish oil 1000 mg, 2 capsules OTC Stool softener 100 mg Review of Systems Weight gain over past 5 years: 12 Cardiovascular: reports: high blood pressure Gastrointestinal: denies: heartburn Neurological: denies: headaches Psychiatric: denies: anxiety, depression, mood disorder Ear/Nose/Throat: denies: tonsillectomy Endocrine: denies: thyroid disease Immunologic: denies: allergies to food or environment Physical Exam Blood Pressure: 144/74 (right) Cuff size: wrist Heart Rate: 56 O2 Saturation: 98 Height: 5 ft 7 in Weight: 196 lb 9.6 oz Body Mass Index: 30.7 BMI Classification: Obese Neck circumference: 16.5 (inches) Mouth and throat: normal Soft palate: long Hard palate: normal Uvula: normal Uvula visualization: 50% Mallampati Class II Tongue: normal in size Tonsils: 1+ Neck: normal w/o lymphadenopathy or thyromegaly Heart: regular rate and rhythm Impression and Plan 1. Suspected Obstructive Sleep Apnea-Hypopnea Syndrome, as previously diagnosed and as suggested by a history of loud and irregular snoring that is getting worse. He has gained weight, about 12-13 pounds, since his last study. I recommend proceeding to polysomnography to confirm the diagnosis and to assess severity. If the patient has significant sleep disordered breathing, a manual CPAP titration study will also be performed to find the optimal treatment pressure. I informed the patient of what the sleep studies involve and after some discussion, obtained agreement to proceed. The pathophysiology of obstructive sleep apnea-hypopnea syndrome was discussed with the patient and health risks of cardiovascular and cerebrovascular disease if not treated. Risks of drowsy driving discussed in detail and patient advised to avoid long distance driving and to puller over at the first sign of drowsiness. Patient agreed to plan. * Schedule polysomnography +- manual CPAP titration study and return in 1-2 weeks after the study to discuss result and initiate therapy. * Avoid long distance driving or driving when feeling sleepy. * Avoid alcohol, sedative and muscle relaxant around bedtime. * Attempt to lose weight. * Review instructions provided by trained office staff on how to prepare for the sleep study. * Return for follow-up after sleep study completed. Counseling Topics: Weight loss health impact Visit Type: In Office Time Spent with Patient (minutes): 30 Provider Statement: I spent 100% of the Face to Face Visit with the patient with greater than 50% spent counseling the patient and coordination of care.
== END 2021-01-07 15:58 | disposition home or self-care (01) ==
LOC: SC 15:57
PROVIDERS: ATTEND Nurse Practitioner Family
DX: G47.33 Obstructive sleep apnea (adult) (pediatric) (principal); E66.9 Obesity, unspecified; Z68.30 Body mass index [BMI] 30.0-30.9, adult
CPT/HCPCS: 99203; G0463; 99212

== ENCOUNTER 2021-01-12 19:34 | Outpatient (CLI) | payer MEDICARE, OTHER | END 2021-01-12 19:35 | disposition home or self-care (01) | LOC: SC 19:34 | PROVIDERS: ATTEND Nurse Practitioner Family | DX: G47.33 Obstructive sleep apnea (adult) (pediatric) (principal); G47.61 Periodic limb movement disorder; I10 Essential (primary) hypertension | CPT/HCPCS: 95810 ==

== ENCOUNTER 2021-01-19 13:21 | Outpatient (CLI) | payer MEDICARE, OTHER ==
--- NOTE | 2021-01-19 14:01 | SLEEP CARE CONSULTATION ---
Information from patient questionnaire entered by Sam Hardy MA. I have reviewed and concur with the information entered by Sam Hardy MA. This document represents the service I personally performed and the decisions made by , Angelica Cortes ARNP. History of Present Illness Service Date and Time: 01/19/2021 1321 Initial [place] Sleepiness Scale score: 13 (in 2020) Current [place] Sleepiness Scale score: 9 (in 2020) Additional HPI information: VIRGIE ARMSTRONG returns for follow up and results of the recently performed polysomnography. I explained the pathophysiology behind obstructive sleep apnea. We then spent quite a bit of time discussing different treatment options. For mild obstructive sleep apnea, surgery and oral appliance are alternatives to nasal CPAP therapy but in moderate or severe cases, nasal CPAP is the most effective and reliable treatment. Because apnea is primarily in supine position, then positional management therapy could be effective. Methods discussed such as positioning with pillows back to prevent supine sleep. I reviewed the impact of weight changes on sleep apnea and strongly recommended losing weight. After some discussion, the patient opted to go with the nasal CPAP therapy. Nasal autoCPAP set at 4-15 cmH20 will be ordered with rationale explained. A manual titration study will be ordered if unable to find optimal pressure with office adjustments. I explained how CPAP machine works with sample devices [employer] Dreamstation and [employer] [id number] and what to expect when using the machine. Using CPAP every night in order to get used to it was emphasized. Patient advised to put CPAP mask on before getting into bed so as not to fall asleep without CPAP. To assist acclimation to CPAP use, it could also be used for a short time during day while reading or watching TV. The patient was instructed to call the CPAP supplier to discuss any mechanical problem that may occur. If the mask given is uncomfortable or is difficult to keep on through the night even with adjustment, contact the CPAP supplier as many will replace with another mask style if notified before 30 days. If snoring or perceives is not getting enough air or too much air from the machine, notify this office. AASM patient education PAP tips reviewed and given to patient. Patient does not drink alcohol very often. Patient was cautioned about risks of drowsy driving until sleepiness symptoms resolve. Sleep Study - Results Type of Sleep Study: Polysomnography Prior sleep studies: Yes Year and Where: 2006 and 2016 [facility] poly Polysomnography/Home Sleep Study results: IMPRESSION: The quality of the study is good. The patient had slightly reduced sleep efficiency due to frequent awakenings during the night. The sleep architecture was abnormal for sleep fragmentation and reduced amount of time spent in slow wave sleep (N3). Respiratory monitoring showed mild obstructive sleep apnea-hypopnea (AHI = 10.2) associated with frequent arousals, oxyhemoglobin desaturation and mild hypoxia (marcello oxygen saturation of 88%). The patient did not sleep supine during this study (supine AHI = 0.0; non-supine = 10.57). Snore was light to moderate in intensity. There was severe periodic leg movement of sleep contributing to the sleep fragmentation. Cardiac rhythm was normal sinus rhythm without significant arrhythmia. No abnormal behavior (parasomnia) observed during the night. Allergies and Home Medications Home medication list reviewed: Yes (no changes) Review of Systems Review of systems same as previous: Yes (no changes) Physical Exam Vital signs obtained and entered by: Hayley INIGUEZ Blood Pressure: 132/78 (left) Cuff size: wrist Heart Rate: 58 O2 Saturation: 94 (with mask) Height: 5 ft 7 in Weight: 194 lb (with boots) Body Mass Index: 30.4 BMI Classification: Obese Impression and Plan 1. Obstructive Sleep Apnea-Hypopnea Syndrome, mild, with lowest oxygen saturation of 88%. Obviously this is the cause of the patients symptoms of unrefreshed sleep, and excessive daytime sleepiness. Positive pressure therapy could benefit hypertension and cardiac disease. As mentioned above, the patient will be started on nasal autoCPAP therapy with pressure set at 4-15 cmH2O. Com pliance guidelines also reviewed. A copy of compliance guidelines will be given for reference at check out. Because the apnea is more severe supine, I instructed to avoid sleeping supine using pillow positioning until able to start CPAP use. 2. Periodic limb movement, severe, that did appear to contribute to fragmentation of patients sleep. Periodic limb movement of sleep (PLMS) is characterized by episodes of repetitive limb movements that occur during sleep and usually involve the lower limbs. The etiology is unknown but can be associated with restless leg syndrome (RLS), low serum ferritin level below 50 to 75mcg / L, neuropathy, spinal cord diseases, kidney disease, rheumatological disorders, narcolepsy, obstructive sleep apnea, and REM sleep behavior disorder. Caffeine can also aggravate PLMS and should be avoided. Sleep hygiene methods can also improve sleep as well as lifestyle changes such as regular exercise. Patient was advised that no treatment is needed at this time. If symptoms increase, then further evaluation is indicated. * Nasal auto CPAP therapy, pressure at 4-15 cm H2O. * Attempt to lose weight. * Avoid alcohol consumption near bedtime. * Avoid supine sleep until using CPAP. * The patient is again cautioned about driving until sleepiness completely resolves. * Return one month after CPAP obtained. I will assess response to therapy and compliance at that time. Counseling Topics: Weight loss health impact Visit Type: In Office Time Spent with Patient (minutes): 22 Provider Statement: I spent 100% of the Face to Face Visit with the patient with greater than 50% spent counseling the patient and coordination of care.
[2021-01-19 14:02] VITALS: BP 132/78
== END 2021-01-19 13:22 | disposition home or self-care (01) ==
LOC: SC 13:21
PROVIDERS: ATTEND Nurse Practitioner Family
DX: G47.33 Obstructive sleep apnea (adult) (pediatric) (principal); G47.61 Periodic limb movement disorder
CPT/HCPCS: 99213; G0463; 99212

== ENCOUNTER 2021-04-21 14:08 | Outpatient (CLI) | payer MEDICARE, OTHER ==
[2021-04-21 14:23] LABS: BASOPHILS % (AUTO) 0.2 %; EOSINOPHILS # (AUTO) 0.2 10^3/uL (0.0-0.7); HCT - HEMATOCRIT 36.8 % (42.0-52.0); MEAN CORPUSCULAR HEMOGLOBIN 30.1 pg (27.0-31.0); MEAN CORPUSCULAR HGB CONC 32.6 g/dL (32.0-36.0); MEAN CORPUSCULAR VOLUME 92.2 fL (80.0-94.0); MEAN PLATELET VOLUME 10.3 fL (7.4-11.4); MONOCYTES # (AUTO) 0.4 10^3/uL (0.0-1.0); MONOCYTES % (AUTO) 8.5 %; NEUTROPHILS # (AUTO) 3.5 10^3/uL (1.5-6.6); NEUTROPHILS % (AUTO) 68.1 %; PLT - PLATELET COUNT 182 10^3/uL (130-450); RED BLOOD COUNT 3.99 10^6/uL (4.70-6.10); RED CELL DISTRIBUTION WIDTH 13.4 % (12.0-15.0); WHITE BLOOD COUNT 5.1 x10^3/uL (4.8-10.8)
[2021-04-21 14:42] LABS: BUN - BLOOD UREA NITROGEN 19 mg/dL (6-20); CALCIUM 9.3 mg/dL (8.5-10.3); CARBON DIOXIDE - CO2 27 mmol/L (21-32); CHLORIDE 102 mmol/L (101-111); CHOL/HDL RATIO 2.4 (<5.0); CHOLESTEROL 164 mg/dL; GFR - MDRD 70 (>89); GLUCOSE 100 mg/dL (70-100); HDL CHOLESTEROL 67 mg/dL; LDL CHOLESTEROL,CALCULATED 74 mg/dL; LDL/HDL RATIO 1.1 (<3.6); POTASSIUM 4.1 mmol/L (3.5-5.0); SODIUM 141 mmol/L (135-145); TRIGLYCERIDES 117 mg/dL; VLDL CHOLESTEROL 23 mg/dL
== END 2021-04-21 14:09 | disposition home or self-care (01) ==
LOC: LAB 14:08
PROVIDERS: ATTEND Internal Medicine Cardiovascular Disease
DX: E78.5 Hyperlipidemia, unspecified (principal); I10 Essential (primary) hypertension
CPT/HCPCS: 36415; 80048; 80061; 83721; 85025